=== PATIENT | female | born 1970 | race African-American/Black ===

== ENCOUNTER 2022-03-19 13:43 | Emergency (ER) | payer OTHER ==
[~2022-03-19] VITALS: Ht 172.7 cm; Wt 72.0 kg
[2022-03-19] MEDS ORDERED: ONDANSETRON HCL 4MG/2ML INJ IV ONE (14:15)
[2022-03-19] MEDS ORDERED: PANTOPRAZOLE SODIUM 40 MG/VIAL IV ONE (14:15)
[2022-03-19] MEDS ORDERED: SODIUM CHLORIDE 0.9% 1,000 ML IV ONE (14:15)
[2022-03-19 15:21] LABS: BASOPHILS % 0.8 % (0.0-2.0); EOSINOPHILS % 0.6 % (0.0-5.0); HEMATOCRIT. 43.3 % (36.0-48.0); HEMOGLOBIN. 14.2 g/dL (12.0-16.0); LYMPHOCYTES % 23.4 % (20.0-50.0); MEAN CORPUSCULAR HEMOGLOBIN 30.1 pg (28.0-32.0); MEAN PLATELET VOLUME 7.9 fl (7.4-10.4); NEUTROPHILS % 69.2 % (40.0-76.0); PLATELET 271 x1000/uL (130-400); RED BLOOD CELL COUNT 4.71 mill/uL (4.2-5.4); RED CELL DISTRIBUTION WIDTH 14.4 % (11.6-14.6)
[2022-03-19 15:32] LABS: CHLORIDE 111 mEq/L (98-107)
[2022-03-19 15:39] LABS: ETHANOL BLOOD 233 mg/dL
[2022-03-19 15:47] LABS: HCG SCREEN POSITIVE
[2022-03-19] MEDS ORDERED: PANTOPRAZOLE SODIUM 40 MG/VIAL IV NR (16:30)
[2022-03-19] MEDS ORDERED: ONDANSETRON HCL 4MG/2ML INJ IV NR (16:30)
[2022-03-19] MEDS ORDERED: ONDA4TAB50 MT (18:02)
[2022-03-19 18:30] VITALS: BP 119/80
== END 2022-03-19 18:58 | disposition home or self-care (01) ==
LOC: ER 13:53
DX: O99.311 Alcohol use complicating pregnancy, first trimester (principal); F10.229 Alcohol dependence with intoxication, unspecified; Y90.7 Blood alcohol level of 200-239 mg/100 ml; Z3A.01 Less than 8 weeks gestation of pregnancy
CPT/HCPCS: 36415; 76830; 76856; 80053; 80307; 80320; 80329; 84702; 84703; 85025; 96361; 96374; 96375; 99284; C9113; J2405; J7030; G0480